=== PATIENT | male | born 1985 | race Caucasian/White ===

== ENCOUNTER → 2022-03-07 07:10 | Outpatient (CLI) | payer OTHER, SELFPAY ==
--- NOTE | ~2022-03-07 | MR_ITS ---
EXAMINATION: MR knee LT wo con DATE: 03/07/2022 07:42 INDICATION: Chronic lateral left knee pain. TECHNIQUE: Magnetic resonance imaging (MRI) of the left knee was performed without intravenous contra st. Sequences included axial PD-weighted FS FSE, coronal PD-weighted FSE and PD-weighted FS FSE, sagi ttal PD-weighted FSE, and sagittal T2-weighted FS FSE. COMPARISON: None. FINDINGS: Medial compartment: No meniscal tear. Cartilage intact. Lateral compartment: No meniscal tear. Cartilage intact. Patellofemoral compartment: Retinacula and patellofemoral cartilage are intact. Ligaments and tendons: ACL, PCL, MCL, and LCL are intact. Abnormal T2 hyperintensity deep to the fibers of the IT band. Inte rmediate, longitudinally oriented abnormal signal in the semimembranosus tendon. Remaining flexor and extensor tendons are intact. Fluid: No significant joint effusion. Tiny Maldonado's cyst. Septated cystic structure closely applied to the an terior horn of the medial meniscus. Osseous/other: No suspicious focal or diffuse marrow signal. IMPRESSION: 1. Perimeniscal cyst adjacent to the anterior horn of the medial meniscus, which may indicate presenc e of an occult tear. 2. Inflammatory changes deep to the IT band, as can be seen with IT band syndrome. 3. Chronic semimembranosus strain. Reviewed, dictated and finalized at location [facility] IMPRESSION: 1. Perimeniscal cyst adjacent to the anterior horn of the medial meniscus, whic h may indicate presence of an occult tear. 2. Inflammatory changes deep to the IT band, as can be seen with IT band syndro me. 3. Chronic semimembranosus strain.
== END ==
PROVIDERS: Visit Provider Orthopaedic Surgery
DX: M25.562 Pain in left knee (principal); G89.29 Other chronic pain
CPT/HCPCS: 73721